=== PATIENT | male | born 1970 | race Asian ===

== ENCOUNTER 2023-05-24 10:04 | Outpatient (CLI) | payer OTHER ==
--- NOTE | 2023-05-24 13:49 | SLEEP CARE CONSULTATION ---
Information from patient questionnaire entered by Harman Escobedo. I have reviewed and concur with the information entered by Harman Escobedo. This document represents the service I personally performed and the decisions made by me, Megan Aguilera MD, [facility]. History of Present Illness Service Date and Time: 05/24/2023 1004 Reason for Visit: New patient Chief Complaint: reports: Unrefreshed sleep, Snoring, Observed pauses in breathing, Fatigue, Frequent awakenings at night Date of Onset: 5YRS Usual bedtime: 11PM Time it takes to fall asleep: MINS Snores at night: Yes Observed to quit breathing while asleep: Yes Sleeps alone due to snoring: Yes Number of times waking at night: 4-5 Reasons for waking at night: reports: Snoring, Gasping for air, Bathroom Toss, Turn, or Twitch while sleeping: Yes Recalls having dreams: Yes Usually gets out of bed at: 9AM Feels refreshed in the morning: No Morning headache: No Sleepy or fatigued during the day: Yes Ever fallen asleep while driving: No Takes day naps: Yes Dreams during day naps: No Prior sleep studies: No Additional HPI information: I had the pleasure of seeing Mr. Talavera today regarding the possibility of him having a sleep disorder. As you know, he is a 53-year-old gentleman who complains of loud snore, observed apneas, frequent awakenings, unrefreshed sleep, and persistent fatigue for the past 5 years. A few months ago, he tried using his mothers CPAP for a few nights and immediately felt a lot better. The machine reported a residual AHI of 7. The patient tells me that he normally goes to bed around 11 pm, and it takes him approximately just a few minutes to fall asleep. He has been told that he snores loudly and irregularly at night. He has also never been observed to stop breathing in his sleep. His has to sleep in a separate room. He can recall waking up on the average of 6 - 7 times during the night. Most of the time he wakes up because of having to use the bathroom. He has awakened occasionally because of his own snoring, choking, and having to gasp for air. There is not a lot of tossing and turning in his sleep. He has somniloquy (sleep talking) but not somnambulism (sleep walking). Generally, there is no recollection of dreams. In the morning he usually gets up out of the bed around 9 a.m. not feeling refreshed nor rested. He usually does not have a morning headache. During the day he complains of feeling sleepy and fatigued. His score on [place] Sleepiness Scale is 13 out of 24. He has never fallen asleep while driving nor has had any accident due to sleepiness. He usually does not take naps during the day. He denies having symptoms of restless leg syndrome. He reports having impaired concentration during the day. - Parasomnia Symptoms Ever been unable to move upon waking from sleep: No Walks in sleep: No Talks in sleep: Yes Ever acted out dreams in sleep: Yes Ever felt weak in the knees when startled or emotional: No Bothered by creepy, crawly, restless sensations in legs: No Problems with memory or concentration: Yes Subjective Initial [place] Sleepiness Scale score: 13 (05/24/23) Social History The patient's occupation is a FT. Patient is Single and lives in [place]. Have you smoked in the past 12 months: No Alcohol use: Yes Alcohol amount and frequency: 1-2 RARELY Caffeine use: Yes Caffeine amount and frequency: 1-2 DAILY Family History Family history of sleep disordered breathing: Yes Family Hx Sleep Apnea: Mother: Snoring, Sleep apnea - Treated, Father: Snoring, Sleep apnea - Treated Allergies and Home Medications Known drug allergies: No Drug allergies reviewed: Yes Home medication list reviewed: Yes Review of Systems Weight gain over past 5 years: 25 Cardiovascular: reports: high blood pressure Respiratory: denies: shortness of breath, wheeze, sputum production, chronic cough, other Gastrointestinal: denies: heartburn, difficulty swallowing, nausea, vomitting, diarrhea, abdominal pain, other Urinary: denies: incontinence, frequency, urgency, impotence, other Neurological: denies: headaches, seizure, head trauma, disorientation, speech dysfunction, gait or balance problems, fainting or unconsciousness, other Psychiatric: denies: Attention Deficit Hyperactivity, anxiety, depression, mood disorder, claustrophobia, other Ear/Nose/Throat: reports: nasal congestion, sinus problems Endocrine: reports: sluggishness, increased urination Immunologic: reports: sneezing, allergies to food or environment Physical Exam Vital signs obtained and entered by: HARMAN Manuel MA Blood Pressure: 118/62 (LEFT ARM) Cuff size: regular Heart Rate: 97 O2 Saturation: 98 Height: 6 ft 2.5 in Weight: 272 lb Body Mass Index: 34.4 BMI Classification: Obese Neck circumference: 17.5 Mood/affect: Normal HEENT: No craniofacial malformation Nostrils: patent to airflow Turbinates: normal Septum: midline Mouth and throat: narrow oropharynx Soft palate: long Hard palate: normal Uvula: normal Uvula visualization: 25% Mallampati Class III Tongue: normal in size Tonsils: absent bilaterally Chin and jaw: normal size and position Neck: normal w/o lymphadenopathy or thyromegaly Heart: regular rate and rhythm Lungs: clear bilaterally Extremities: no edema or clubbing Neurologic: intact Impression and Plan IMPRESSION: 1. Obstructive Sleep Apnea-Hypopnea Syndrome, as suggested by history of loud and irregular snoring, observed cessation of breath while asleep, frequent awakenings during the night, unrefreshed sleep, cognitive impairment, and daytime hypersomnolence. Narrow oropharynx and obesity are common predisposing factors for obstructive sleep apnea-hypopnea syndrome. Untreated obstructive sleep apnea can also cause hypertension. I recommend proceeding to polysomnography to confirm the diagnosis and to assess severity. If he has significant sleep disordered breathing, a manual CPAP titration study will also be performed to find the optimal treatment pressure. I informed the patient of what the sleep studies involve and after some discussion, he agreed to proceed. Plan: 1. Schedule polysomnography and return in 1 to 2 weeks after the study to discuss result and initiate therapy. 2. Avoid long distance driving or when feeling sleepy. 3. Avoid alcohol, sedative and muscle relaxant around bedtime. 4. Attempt to lose weight. Counseling Topics: Weight control Follow up with Sleep Care in: 1-2 months Visit Type: In Office Time Spent with Patient (minutes): 15 Provider Statement: I spent 100% of the Face to Face Visit with the patient with greater than 50% spent counseling the patient and coordination of care.
[2023-05-24 13:55] VITALS: BP 118/62
== END 2023-05-24 10:05 | disposition home or self-care (01) ==
LOC: SC 10:04
PROVIDERS: ATTEND Internal Medicine Pulmonary Disease
DX: G47.10 Hypersomnia, unspecified (principal); R06.83 Snoring; G47.8 Other sleep disorders; R06.81 Apnea, not elsewhere classified; I10 Essential (primary) hypertension; E66.9 Obesity, unspecified; Z68.34 Body mass index [BMI] 34.0-34.9, adult
CPT/HCPCS: 99202; 99212

== ENCOUNTER 2023-07-12 09:21 | Outpatient (CLI) | payer OTHER | END 2023-07-12 09:22 | disposition home or self-care (01) | LOC: SC 09:21 | PROVIDERS: ATTEND Internal Medicine Pulmonary Disease | DX: G47.33 Obstructive sleep apnea (adult) (pediatric) (principal); R09.02 Hypoxemia | CPT/HCPCS: 95806 ==